=== PATIENT | female | born 1970 | race Asian ===

== ENCOUNTER 2022-10-01 10:20 | Emergency (ER) | payer OTHER, BC ==
[2022-10-01 10:35] VITALS: BP 175/85
--- NOTE | 2022-10-01 10:44 | ED Physician Documentation ---
History of Present Illness - Stated complaint Stated Complaint: EXPOSURE - Chief complaint Chief Complaint: General - History obtained from History obtained from: Patient - History of Present Illness Timing: How many days ago (2) Quality: Here for post exposure prophylaxis to pertussis that occured at work here. Directed to ER by admin. 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 - Present Medications Home Medications: Ambulatory Orders Medication Instructions Recorded Confirmed Amlodipine Besylate 20 mg PO DAILY 09/24/12 09/24/12 Levothyroxine [Synthroid] 75 mcg PO QDAC 09/24/12 09/24/12 Meclizine HCl 25 mg PO PRN 09/24/12 09/24/12 Potassium Citrate [Urocit-K] 25,000 meq PO DAILY 09/24/12 09/24/12 lisinopriL [Zestril] 5 mg PO DAILY 09/24/12 09/24/12 Cetirizine [ZyrTEC] 10 mg PO DAILY #20 tablet 10/26/12 Meclizine [Antivert] 25 mg PO Q6H #30 tablet 10/26/12 Azithromycin [Zithromax] 0 mg PO DAILY #6 tablet 10/01/22 - Allergies Allergies/Adverse Reactions: Allergies Allergy/AdvReac Type Severity Reaction Status Date / Time No Known Drug Allergies Allergy Verified 10/26/12 08:56 - Social History Does the pt smoke?: No Smoking Status: Never smoker PD ED PE NORMAL - Vitals Vital signs reviewed: Yes - General General: Alert and oriented X 3, No acute distress, Well developed/nourished Results - Vitals Vitals: Vital Signs - 24 hr 10/01/22 10:33 Temperature 36.6 C Heart Rate 76 Respiratory 16 Rate Blood Pressure 175/85 H O2 Saturation 96 Oxygen O2 Source Room air PD Medical Decision Making - ED course Complexity details: considered differential (Here for post exposure prophylaxis to pertussis that occured at work here. Directed to ER by admin.), d/w patient Departure - Departure Disposition: 01 Home, Self Care Clinical Impression: Pertussis exposure Condition: Stable Record reviewed to determine appropriate education?: Yes Prescriptions: Azithromycin [Zithromax] 0 mg PO DAILY #6 tablet Comments: Zithromax for 5 days. Take it with food. This should significantly reduce your chance of developing infection. I sent your script to [facility] outpatient pharmacy. Discharge Date/Time: 10/01/22 11:07
== END 2022-10-01 11:07 | disposition home or self-care (01) ==
LOC: ED 10:20
DX: Z20.818 Contact with and (suspected) exposure to other bacterial communicable diseases (principal)
CPT/HCPCS: 99281; 99282

== ENCOUNTER 2023-03-17 10:28 | Emergency (ER) | payer BC ==
[2023-03-17 11:13] LABS: EOSINOPHILS # (AUTO) 0.2 10^3/uL (0.0-0.7); EOSINOPHILS % (AUTO) 5.1 %; HCT - HEMATOCRIT 26.4 % (37.0-47.0); HGB - HEMOGLOBIN 7.9 g/dL (12.0-16.0); LYMPHOCYTES # (AUTO) 1.8 10^3/uL (1.5-3.5); LYMPHOCYTES % (AUTO) 45.2 %; MEAN CORPUSCULAR HEMOGLOBIN 29.3 pg (27.0-31.0); MEAN CORPUSCULAR HGB CONC 29.9 g/dL (32.0-36.0); MEAN CORPUSCULAR VOLUME 97.8 fL (81.0-99.0); MEAN PLATELET VOLUME 8.5 fL (7.9-10.8); MONOCYTES # (AUTO) 0.5 10^3/uL (0.0-1.0); MONOCYTES % (AUTO) 11.8 %; NEUTROPHILS # (AUTO) 1.4 10^3/uL (1.5-6.6); NEUTROPHILS % (AUTO) 36.6 %; PLT - PLATELET COUNT 249 10^3/uL (130-450); RED CELL DISTRIBUTION WIDTH 14.6 % (12.0-15.0); WHITE BLOOD COUNT 3.9 x10^3/uL (4.8-10.8)
[2023-03-17 11:43] LABS: ALBUMIN 4.3 g/dL (3.2-5.5); BILIRUBIN,TOTAL 0.3 mg/dL (0.2-1.0); CALCIUM 9.2 mg/dL (8.5-10.3); CREATININE 2.8 mg/dL (0.6-1.3); POTASSIUM 3.9 mmol/L (3.5-4.5); TOTAL PROTEIN 8.6 g/dL (6.4-8.9)
--- NOTE | 2023-03-17 12:34 | ED Physician Documentation ---
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 Patient had laboratory work drawn 3 days ago, she was called today stating that her hemoglobin was low and she needed to come to the emergency department for further work-up. Patient denies complaints, states that she felt somewhat lightheaded this morning, but has gone throughout her day without difficulty and currently has no complaints. She has a nephrology consult this . 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 - Present Medications Home Medications: Ambulatory Orders Medication Instructions Recorded Confirmed Amlodipine Besylate 20 mg PO DAILY 09/24/12 09/24/12 Levothyroxine [Synthroid] 75 mcg PO QDAC 09/24/12 09/24/12 Meclizine HCl 25 mg PO PRN 09/24/12 09/24/12 Potassium Citrate [Urocit-K] 25,000 meq PO DAILY 09/24/12 09/24/12 lisinopriL [Zestril] 5 mg PO DAILY 09/24/12 09/24/12 Cetirizine [ZyrTEC] 10 mg PO DAILY #20 tablet 10/26/12 Meclizine [Antivert] 25 mg PO Q6H #30 tablet 10/26/12 Azithromycin [Zithromax] 0 mg PO DAILY #6 tablet 10/01/22 - Allergies Allergies/Adverse Reactions: Allergies Allergy/AdvReac Type Severity Reaction Status Date / Time No Known Drug Allergies Allergy Verified 10/26/12 08:56 - Social History Does the pt smoke?: No Smoking Status: Never smoker PD ED PE NORMAL - Vitals Vital signs reviewed: Yes - General General: Alert and oriented X 3, No acute distress, Well developed/nourished - HEENT HEENT: Atraumatic - Cardiac Cardiac: RRR, Strong equal pulses - Respiratory Respiratory: No respiratory distress, Clear bilaterally - Abdomen Abdomen: Soft, Non tender, Non distended - Derm Derm: Normal color, Warm and dry, No rash - Extremities Extremities: No deformity, No tenderness to palpate, Normal ROM s pain, No edema - Neuro Neuro: Alert and oriented X 3, data typist 2-12 intact, No motor deficit, Normal speech - Psych Psych: Normal mood, Normal affect Results - Vitals Vitals: Vital Signs - 24 hr 03/17/23 03/17/23 10:46 13:59 Temperature 36.6 C Heart Rate 101 H 75 Respiratory 20 16 Rate Blood Pressure 186/88 H 146/88 H O2 Saturation 100 99 Oxygen O2 Source Room air - Labs Labs: Laboratory Tests 03/17/23 03/17/23 03/17/23 11:03 11:03 12:35 WBC 3.9 L RBC 2.70 L Hgb 7.9 L Hct 26.4 L MCV 97.8 MCH 29.3 MCHC 29.9 L RDW 14.6 Plt Count 249 MPV 8.5 Neut # (Auto) 1.4 L Lymph # (Auto) 1.8 [place] # (Auto) 0.5 Eos # (Auto) 0.2 Baso # (Auto) 0.0 Absolute Nucleated RBC 0.00 Nucleated RBC % 0.0 Sodium 137 Potassium 3.9 Chloride 109 Carbon Dioxide 19 L Anion Gap 9.0 BUN 38 H Creatinine 2.8 H Estimated GFR (MDRD) 18 L Glucose 99 Calcium 9.2 Total Bilirubin 0.3 AST 22 ALT 11 Alkaline Phosphatase 67 Total Protein 8.6 Albumin 4.3 Globulin 4.3 H Albumin/Globulin Ratio 1.0 Lipase 168 H Urine Color YELLOW Urine Clarity CLEAR Urine pH 6.0 Ur Specific [place] 1.010 Urine Protein TRACE Urine Glucose (UA) NEGATIVE Urine Ketones NEGATIVE Urine Occult Blood TRACE-INTA Urine Nitrite NEGATIVE Urine Bilirubin NEGATIVE Urine Urobilinogen 0.2 (NORMAL) Ur Leukocyte Esterase NEGATIVE Ur Microscopic Review NOT INDICATED Urine Culture Comments NOT INDICATED Urine HCG, Qual 03/17/23 12:35 WBC RBC Hgb Hct MCV MCH MCHC RDW Plt Count MPV Neut # (Auto) Lymph # (Auto) [place] # (Auto) Eos # (Auto) Baso # (Auto) Absolute Nucleated RBC Nucleated RBC % Sodium Potassium Chloride Carbon Dioxide Anion Gap BUN Creatinine Estimated GFR (MDRD) Glucose Calcium Total Bilirubin AST ALT Alkaline Phosphatase Total Protein Albumin Globulin Albumin/Globulin Ratio Lipase Urine Color Urine Clarity Urine pH Ur Specific [place] Urine Protein Urine Glucose (UA) Urine Ketones Urine Occult Blood Urine Nitrite Urine Bilirubin Urine Urobilinogen Ur Leukocyte Esterase Ur Microscopic Review Urine Culture Comments Urine HCG, Qual NEGATIVE PD Medical Decision Making - ED course Complexity details: reviewed old records, reviewed results, re-evaluated patient, considered differential, d/w patient ED course: Patient with no complaint sent in for abnormal labs drawn several days ago. Currently denying complaints. Hemoglobin is 7.9, creatinine 2.8. These are changed from her previous, however we have no recent baselines for comparison. Patient was able to pull up her previous laboratory work on [facility], she has had a steady uptrend in her creatinine as well as a slow but steady downtrend in her hemoglobin, however her most recent hemoglobin drawn 3 days ago was 7.2. Hemoglobin today is actually increased from prior. I discussed the patient's case with her analytics developer Dr. Boswell, who was the physician that referred her to the emergency department. He states that as long as the patient is asymptomatic he is happy that her hemoglobin is improved and she may be discharged with her usual scheduled follow-up. He states that she does get Epogen shots from her chronic anemia. Discussed results of labs as well as Dr. Boswell's recommendations to patient, she is in agreement at this time. Note for work provided upon patient request. Departure - Departure Disposition: 01 Home, Self Care Clinical Impression: Anemia, Chronic kidney disease Condition: Stable Instructions: Kidney Disease Take Iron Anemia, ED Diet Renal Forms: PCP List Discharge Date/Time: 03/17/23 13:59
[2023-03-17 12:52] LABS: BILIRUBIN,URINE NEGATIVE (NEGATIVE); GLUCOSE, URINE (UA) NEGATIVE (NEGATIVE); KETONES,URINE (UA) NEGATIVE (NEGATIVE); LEUKOCYTE ESTERASE, URINE NEGATIVE (NEGATIVE); NITRITE,URINE NEGATIVE (NEGATIVE); OCCULT BLOOD,URINE TRACE-INTA (NEGATIVE); PROTEIN,URINE TRACE mg/dL (NEGATIVE); UROBILINOGEN,URINE 0.2 (NORMAL) E.U./dL (NORMAL)
[2023-03-17 12:55] LABS: CLARITY,URINE CLEAR (CLEAR)
[2023-03-17 13:23] LABS: HCG UR QUAL NEGATIVE
[2023-03-17 14:01] VITALS: BP 146/88; O2SAT 99
== END 2023-03-17 13:59 | disposition home or self-care (01) ==
LOC: ED 10:28
DX: N18.9 Chronic kidney disease, unspecified (principal); D63.1 Anemia in chronic kidney disease; E03.9 Hypothyroidism, unspecified; Z79.899 Other long term (current) drug therapy
CPT/HCPCS: 36415; 80053; 81001; 81003; 81025; 83690; 85025; 87086; 99283

== ENCOUNTER 2023-03-25 10:52 | Outpatient (CLI) | payer BC | END 2023-03-25 10:53 | disposition home or self-care (01) | LOC: LAB 10:52 | PROVIDERS: ATTEND Internal Medicine Nephrology | DX: D50.0 Iron deficiency anemia secondary to blood loss (chronic) (principal) | CPT/HCPCS: 36415; 82728 ==